=== PATIENT | male | born 1940 | race Caucasian/White ===

== ENCOUNTER 2023-04-09 12:08 | Outpatient (CLI) | payer MEDICARE, OTHER ==
[2023-04-09 14:35] LABS: #Basophils 0.1 10x3/uL (0.0-0.2); #Eosinphils 1.7 10x3/uL (0.0-0.5); #Monocytes 0.6 10x3/uL (0.0-1.1); %Basophils 0.9 % (0.0-2.0); %Eosinophils 19.9 % (0.0-6.0); %Lymphocytes 24.1 % (18.0-47.0); %Neutrophils 47.7 % (40.0-75.0); Hematocrit 41.3 % (38.8-50.0); Hemoglobin 14.1 g/dL (13.5-17.5); Mean Corpuscular HGB CONC 34.1 g/dL (32.0-36.0); Mean Corpuscular Hemoglobin 31.1 pg (27.0-33.0); Mean Corpuscular Volume 91.2 fl (81.2-95.1); Mean Platelet Volume 9.4 fl (7.4-10.4); Platelet Count 285 10x3/uL (150-450); RBC Distribution Width 12.8 % (11.5-14.5); Red Blood Cell (RBC) Count 4.53 10x6/uL (4.32-5.72); White Blood Cell (WBC) Count 8.4 10x3/uL (3.5-10.5)
[2023-04-09 14:40] LABS: Prothrombin Time 10.3 sec (9.5-12.1)
[2023-04-09 14:46] LABS: Anion Gap 12 mmol/L (10-20); BUN (Urea Nitrogen) 15 mg/dL (8.4-25.7); Calc. Creatinine Clearance 0 mL/min (70-130); Carbon Dioxide 26 mmol/L (23-31); Chloride 105 mmol/L (98-107); Estimated GFR 88; Glucose 94 mg/dL (83-110); Potassium 4.3 mmol/L (3.5-5.1); Sodium 139 mmol/L (136-145)
== END 2023-04-09 12:09 | disposition home or self-care (01) ==
LOC: LABBT 12:08
PROVIDERS: ATTEND Orthopaedic Surgery
DX: Z01.818 Encounter for other preprocedural examination (principal); M16.12 Unilateral primary osteoarthritis, left hip
CPT/HCPCS: 80048; 85025; 85610; 87081; 93005; 93010

== ENCOUNTER 2023-04-11 06:50 | Inpatient (IN) | payer MEDICARE, OTHER ==
[2023-04-09 13:22] VITALS: BMI 27.8
[2023-04-11] MEDS ORDERED: Sodium Chloride 0.9% 100 ML ONE ×2 (07:46→08:57)
[2023-04-11] MEDS ORDERED: Tranexamic Acid 1,000 MG/10 ML VIAL ONE (07:46)
[2023-04-11] MEDS ORDERED: Vancomycin 1 GM/200 ML (FROZEN) BAG ONE (07:46)
[2023-04-11] MEDS ORDERED: Ondansetron PF 4 MG/2 ML Vial ONE ×2 (08:35→09:27)
[2023-04-11] MEDS ORDERED: PROPOFOL 20 ML ONE (08:35)
[2023-04-11] MEDS ORDERED: Glycopyrrolate 0.2 MG/ML 5 ML SYRINGE ONE ×2 (08:35→09:27)
[2023-04-11] MEDS ORDERED: CEFAZOLIN 2 GM VIAL ONE (08:57)
[2023-04-11] MEDS ORDERED: Bupivacaine PF 0.5% 30 ML VIAL ONE (08:57)
[2023-04-11] MEDS ORDERED: HYDROmorphone 2 MG/ML VIAL ONE (09:00)
[2023-04-11] MEDS ORDERED: ePHEDrine Sulfate 50 MG/10 ML VIAL ONE (09:27)
[2023-04-11] MEDS ORDERED: NEOSTIGMINE 3 MG/3 ML SYR 3 MG/3 ML SYRINGE ONE (09:27)
[2023-04-11] MEDS ORDERED: Rocuronium Bromide 10 MG/ML (10ML VIAL) ONE (09:27)
[2023-04-11] MEDS ORDERED: PROPOFOL 200 MG/20 ML VIAL ONE (09:27)
[2023-04-11] MEDS ORDERED: Promethazine HCl 25 MG/ML VIAL IM PRN ×2 (11:10→13:49)
[2023-04-11] MEDS ORDERED: Ondansetron HCl/PF 4 MG/2 ML Vial IVP PRN (11:10)
[2023-04-11] MEDS ORDERED: HYDROmorphone 2 MG/ML VIAL SLOW IVP PRN (11:10)
[2023-04-11] MEDS ORDERED: Fentanyl 250 MCG/5 ML VIAL ONE (11:56)
[2023-04-11] MEDS ORDERED: traMADol HCl 50 MG TAB PO PRN ×2 (13:49)
[2023-04-11] MEDS ORDERED: HYDROcodone/Acetaminophen 10/325 mg Tablet PO PRN ×2 (13:49)
[2023-04-11] MEDS ORDERED: Acetaminophen 325 MG TAB PO PRN (13:49)
[2023-04-11] MEDS ORDERED: Zolpidem Tartrate 5 MG TAB PO PRN (13:49)
[2023-04-11] MEDS ORDERED: Ondansetron PF 4 MG/2 ML Vial IVP PRN (13:49)
[2023-04-11] MEDS ORDERED: diphenhydrAMINE 25 MG CAP PO PRN (13:49)
[2023-04-11] MEDS ORDERED: fentaNYL 50 mcg/mL 1 mL Vial SLOW IVP PRN ×2 (13:49)
[2023-04-11] MEDS ORDERED: CEFAZOLIN 2 GM in Sodium Chloride 0.9% 100 ML IVPB SCH (13:49)
[2023-04-11] MEDS: Ketorolac Tromethamine 30 MG/ML VIAL IVP SCH ×2 (14:00→21:10)
[2023-04-11] MEDS: CEFAZOLIN 2 GM in Sodium Chloride 0.9% 100 ML IVPB SCH (18:12)
[2023-04-11] MEDS: Aspirin 81 mg Enteric Coated Tablet PO SCH (21:09)
[2023-04-12] MEDS: CEFAZOLIN 2 GM in Sodium Chloride 0.9% 100 ML IVPB SCH (04:02)
[2023-04-12 05:58] LABS: Hematocrit 35.7 % (42.0-52.0); Hemoglobin 11.9 g/dL (14.0-18.0); Mean Corpuscular HGB CONC 33.3 g/dL (32.0-36.0); Mean Corpuscular Hemoglobin 30.6 pg (27.0-31.0); Mean Corpuscular Volume 91.8 fl (78.0-98.0); Mean Platelet Volume 9.5 fL (7.4-10.4); Platelet Count 215 10x3/uL (130-400); RBC Distribution Width 13.2 % (11.5-14.5); Red Blood Cell (RBC) Count 3.89 mill/uL (4.70-6.10); White Blood Cell (WBC) Count 10.6 10x3/uL (4.8-10.8)
[2023-04-12] MEDS: Ketorolac Tromethamine 30 MG/ML VIAL IVP SCH ×2 (06:20→14:06)
[2023-04-12] MEDS ORDERED: Senokot S 8.6-50 MG TAB PO SCH (09:00)
[2023-04-12] MEDS ORDERED: Ferrous Gluconate 324 MG TAB PO SCH (09:00)
[2023-04-12] MEDS ORDERED: Multivitamin W/ Minerals 1 TAB PO SCH (09:00)
[2023-04-12] MEDS: Aspirin 81 mg Enteric Coated Tablet PO SCH (09:44)
[2023-04-12 18:07] VITALS: BP 121/71; TEMP 98.7
== END 2023-04-12 19:21 | DRG 470 ==
LOC: SDC 06:50 → EDSTATUS 12:30 → SURG A 13:49 → OBSVTOIN 04-12 07:28
PROVIDERS: ADMIT Orthopaedic Surgery; ATTEND Orthopaedic Surgery
PROC: 0SRB0JZ Replacement of Left Hip Joint with Synthetic Substitute, Open Approach (ICD-10-PCS; principal; 2023-04-11)
DX: M16.12 Unilateral primary osteoarthritis, left hip (principal); I10 Essential (primary) hypertension; E78.5 Hyperlipidemia, unspecified; Z88.0 Allergy status to penicillin; Z88.2 Allergy status to sulfonamides
CPT/HCPCS: 36415; 72170; 80048; 85025; 85027; 85610; 87081; 93005; 96374; 96375; 96376; C1776; G0378; J1170; J1885; J2405; J2704; J3010; J3370-JW; J3490; S0020

== ENCOUNTER 2024-07-29 12:32 | Outpatient (CLI) | payer MEDICARE, OTHER | END 2024-07-29 12:33 | disposition home or self-care (01) | PROVIDERS: ATTEND Psychiatry & Neurology Neurology | DX: G45.9 Transient cerebral ischemic attack, unspecified (principal) | CPT/HCPCS: 93225; 93226 ==